=== PATIENT | female | born 1965 | race Caucasian/White ===

== ENCOUNTER 2021-09-12 11:12 | Emergency (ER) | payer OTHER ==
[~2021-09-12] VITALS: Ht 172.7 cm; Wt 105.7 kg
[~2021-09-12 11:12] MED LIST: BACTRIM DS TAB1 EACH PO; ONDANSETRON ODT4 MG PO; PYRIDIUM100 MG PO
[2021-09-12 12:30] LABS: BILIRUBIN NEGATIVE (NEGATIVE); BLOOD TRACE-LYSED Ery/uL (NEGATIVE); CLARITY CLEAR (CLEAR); COLOR YELLOW (YELLOW); GLUCOSE (U) NORMAL (NORMAL); LEUKOCYTES 2+ Leu/uL (NEGATIVE); NITRITE NEGATIVE (NEGATIVE); PROTEIN NEGATIVE (NEGATIVE); UROBILINOGEN 0.2 mg/dL (0.2-1.0); pH 6.5 (5.0-9.0)
[2021-09-12 12:31] LABS: BASOPHIL 0.2 % (0-2); EOSINOPHIL 0 % (0-5); HCT 46.5 % (37.0-47.0); HGB 14.7 g/dl (12.5-16.0); LYMPHOCYTE 20.9 % (15-48); MCHC 31.6 g/dL (32.0-36.0); MCV 98.1 fL (78.0-100.0); MONOCYTE 4.5 % (0-12); MPV 10.6 fL (6.0-9.5); NEUTROPHIL 73.4 % (41-80); NRBC 0; PLT 331 K/uL (150-400); RBC 4.74 M/uL (4.20-5.40); RDW 14.3 % (11.5-14.0); WBC 12.2 K/uL (4.0-10.5)
[2021-09-12 12:32] LABS: ALBUMIN 3.6 g/dL (3.4-5.0); BILIRUBIN - TOTAL 0.3 mg/dL (0.2-1.0); BUN/CREAT RATIO (CALC) 18.1 RATIO; CREATININE 0.83 mg/dL (0.51-0.95); GLOBULIN (CALCULATION) 4.4 g/dL
[2021-09-12 12:42] LABS: LACTIC ACID 1.1 mmol/L (0.4-1.9)
[2021-09-12 12:44] LABS: BACTERIA 2+; URINARY WBC 20-50
[2021-09-12] MEDS ORDERED: ZOFRAN4 M1 PO (13:52)
[2021-09-12] MEDS ORDERED: BACTRIM DS TAB1 EACH PO (13:52)
== END 2021-09-12 14:35 | disposition home or self-care (01) ==
LOC: FER 11:12
PROVIDERS: Internal Medicine; Nurse Practitioner Family
DX: N39.0 Urinary tract infection, site not specified (principal); R10.84 Generalized abdominal pain; R11.0 Nausea; Z88.6 Allergy status to analgesic agent
CPT/HCPCS: 36415; 80053; 81001; 82150; 83605; 83690; 84484; 85025; 87076; 87088; 87186; 93005; J2270; J2405; J7030